=== PATIENT | male | born 1950 | race Caucasian/White ===

== ENCOUNTER 2017-09-25 12:44 | Emergency (ER) | payer MEDICARE, BC ==
[2017-09-25] MEDS ORDERED: Nitroglycerin 0.4 MG Tab.SL ONE (12:58)
[2017-09-25] MEDS ORDERED: Nitroglycerin 0.4 MG Tab.SL SL ONE (14:30)
[2017-09-25] MEDS ORDERED: Metoprolol Tartrate 5 MG/5 ML SDV ONE (16:14)
[2017-09-25] MEDS ORDERED: Heparin Sodium 5,000 Units/ML Vial ONE (16:14)
[2017-09-25] MEDS ORDERED: Heparin Sodium 5,000 Units/ML Vial IVPUSH ONE (16:20)
[2017-09-25] MEDS ORDERED: Metoprolol Tartrate 5 MG/5 ML SDV IV ONE (16:20)
--- NOTE | 2017-09-26 09:21 | CR ---
Chest 1V Frontal HISTORY: pain COMPARISON: 05/19/2008 FINDINGS: No acute infiltrate is identified. Heart size is felt to be within normal limits for the AP technique . There is been interval median sternotomy. No vascular redistribution or pleural fluid can be seen. Bony structures and soft tissues are stable. IMPRESSION: Median sternotomy changes are noted. No acute chest abnormality or other significant interval change is identified.
[2017-09-26 15:04] VITALS: BP 136/79
== END 2017-09-25 17:30 ==
LOC: JP.ED 12:44
DX: I25.119 Atherosclerotic heart disease of native coronary artery with unspecified angina pectoris (principal); E11.9 Type 2 diabetes mellitus without complications; Z79.82 Long term (current) use of aspirin; Z79.84 Long term (current) use of oral hypoglycemic drugs; Z88.1 Allergy status to other antibiotic agents
CPT/HCPCS: 36415; 71010; 80053; 82550; 84484; 85025; 85610; 85730; 96374; 96375; 99285; A9270; 93005; 93010; 99284; J3490

== ENCOUNTER 2018-12-16 22:24 | Emergency (ER) | payer MEDICARE, BC ==
[2018-12-16 23:37] VITALS: BP 125/75
--- NOTE | 2018-12-16 23:45 | EDM.PDOC ---
ED HPI GENERAL MEDICAL PROBLEM - General Chief Complaint: Chest Pain Stated Complaint: HEART ISSUES Time Seen by Provider: 12/16/18 22:40 Source of Information: Reports: Patient, Family History Limitations: Reports: No Limitations - History of Present Illness INITIAL COMMENTS - FREE TEXT/NARRATIVE: 68-year-old male with a known history of coronary disease presents with intermittent chest pressure over the past several weeks. He also has persistent dizziness and malaise. The chest pain is usually at rest, and he does not have diaphoresis, nausea and vomiting, or radiation of pain. At times he does feel short of breath. He does not get significant pain when active, yesterday he walked briskly 500 yards without problem. Location: Reports: Chest Improves with: Reports: Movement Worsens with: Reports: Other (Lying down seems to make pain worse) Associated Symptoms: Reports: Other (Persistent lightheadedness, dizziness and intermittent headaches) Chest Pain Score (Numeric/FACES): 3 - Related Data Allergies Allergy/AdvReac Type Severity Reaction Status Date / Time amoxicillin [Amoxicillin] Allergy Itching Verified 12/16/18 22:29 Home Meds: Home Meds Brimonidine Tartrate [Alphagan P] 1 drop OP BID 07/07/13 [History] metFORMIN [Glucophage XR] 850 mg PO BIDM 07/07/13 [History] Aspirin 1 tab PO DAILY 12/16/18 [History] Dorzolamide/Timolol [Cosopt 2%-0.5% Ophth Soln] 1 drop OP BID 12/16/18 [History] Ezetimibe 1 tab PO DAILY 12/16/18 [History] Glimepiride 4 mg PO DAILY 12/16/18 [History] Pravastatin Sodium 1 tab PO DAILY 12/16/18 [History] Ticagrelor [Brilinta] 1 tab PO DAILY 12/16/18 [History] Past Medical History HEENT History: Reports: Glaucoma Other HEENT History: tubes in eyes for glaucoma Cardiovascular History: Reports: Angina, Heart Murmur, High Cholesterol, Hypertension, NM, Stents, Other (See Below) Other Cardiovascular History: quadruple bypass 11 years ago Musculoskeletal History: Reports: Back Pain, Chronic, Neck Pain, Chronic Endocrine/Metabolic History: Reports: Diabetes, Type II, Obesity/BMI 30+ - Infectious Disease History Infectious Disease History: Reports: Chicken Pox, Measles - Past Surgical History HEENT Surgical History: Reports: Eye Surgery Cardiovascular Surgical History: Reports: Coronary Artery Bypass, Coronary Artery Stent GI Surgical History: Reports: Colonoscopy Musculoskeletal Surgical History: Reports: Other (See Below) Other Musculoskeletal Surgeries/Procedures:: laminectomy L5 Social & Family History - Family History Family Medical History: Noncontributory - Tobacco Use Smoking Status *Q: Light Tobacco Smoker Years of Tobacco use: 50 Packs/Tins Daily: 0.2 - Caffeine Use Caffeine Use: Reports: Coffee - Recreational Drug Use Recreational Drug Use: No ED ROS GENERAL - Review of Systems Review Of Systems: See Below Constitutional: Reports: Malaise. Denies: Fever, Chills HEENT: Reports: Vertigo. Denies: Ear Pain Respiratory: Reports: Shortness of Breath Cardiovascular: Reports: Chest Pain (Pressure). Denies: Palpitations GI/Abdominal: Reports: No Symptoms : Reports: No Symptoms Musculoskeletal: Reports: Neck Pain Skin: Reports: No Symptoms Neurological: Reports: Headache ED EXAM, GENERAL - Physical Exam Exam: See Below Exam Limited By: No Limitations General Appearance: Alert, No Apparent Distress Eye Exam: Bilateral Eye: Normal Inspection Ears: Other (Cerumen impaction of the right ear, normal TM on the left) Throat/Mouth: Normal Inspection Head: Atraumatic Neck: Normal Inspection. No: Carotid Bruit Respiratory/Chest: No Respiratory Distress, Lungs Clear Cardiovascular: Regular Rate, Rhythm, Systolic Murmur (2/6) GI/Abdominal: Soft, Non-Tender Extremities: Pedal Edema (Trace lower extremity edema, symmetric) Neurological: Alert, Oriented, No Motor/Sensory Deficits Psychiatric: Normal Affect, Normal Mood Skin Exam: Warm, Dry EKG INTERPRETATION Rhythm: NSR EKG Interpretation Comments: Nonspecific ST changes, EKG is nearly identical to one done 2 years ago. Course - Vital Signs Last Recorded V/S: Last Vital Signs Temp 96.6 F 12/16/18 22:31 Pulse 71 12/16/18 23:36 Resp 15 12/16/18 23:36 BP 125/75 12/16/18 23:36 Pulse Ox 93 L 12/16/18 23:36 - Orders/Labs/Meds Orders: Active Orders 24 hr Category Date Time Status EKG Documentation Completion [RC] ASDIRECTED Care 12/16/18 22:45 Active EKG 12 Lead [EK] Routine Ther 12/16/18 22:45 Ordered Labs: Laboratory Tests 12/16/18 12/16/18 Range/Units 23:14 23:14 WBC 7.1 (4.5-11.0) K/uL RBC 5.31 (4.30-5.90) M/uL Hgb 15.4 H (12.0-15.0) g/dL Hct 47.4 (40.0-54.0) % MCV 89 (80-98) fL MCH 29 (27-31) pg MCHC 33 (32-36) % Plt Count 187 (150-400) K/uL Neut % (Auto) 60 (36-66) % Lymph % (Auto) 28 (24-44) % [place] % (Auto) 10 H (2-6) % Eos % (Auto) 2 (2-4) % Baso % (Auto) 0 (0-1) % Sodium 138 L (140-148) mmol/L Potassium 4.1 (3.6-5.2) mmol/L Chloride 103 (100-108) mmol/L Carbon Dioxide 25 (21-32) mmol/L Anion Gap 14.1 H (5.0-14.0) mmol/L BUN 20 H D (7-18) mg/dL Creatinine 1.2 (0.8-1.3) mg/dL Est Cr Clr Drug Dosing 66.46 mL/min Estimated GFR (MDRD) > 60 (>60) Glucose 237 H (74-106) mg/dL Calcium 8.8 (8.5-10.1) mg/dL Troponin I 0.017 (0.000-0.056) ng/mL - Re-Assessments/Exams Free Text/Narrative Re-Assessment/Exam: 12/17/18 01:12 EKG was done on arrival which showed no change from previous EKGs. CBC, CMP and troponin were obtained. These were reassuring, with troponin being 0. Patient had no pain while in the emergency room. Hemoglobin is 15.4, white count normal. Electrolytes and kidney function normal. Explained to the patient that this is atypical for cardiac pain. He was discharged with nitroglycerin to use when necessary for pain and if it seems that the nitroglycerin is consistently beneficial he should recheck. He can also return if the pain worsens with shortness of breath, diaphoresis or other concerning symptoms. I recommended he contact the cardiology department tomorrow to schedule an outpatient appointment Departure - Departure Time of Disposition: 23:50 Disposition: Home, Self-Care 01 Condition: Good Clinical Impression: Atypical chest pain Instructions: Nonspecific Chest Pain Referrals: Ellis Lisa MD [Primary Care Provider] - Forms: ED Department Discharge Care Plan Goals: Continue any current medications, and use nitroglycerin as directed for any future chest pain. Consider calling cardiology tomorrow to discuss an appointment in the near future. Return to the emergency room if pain resolves with nitroglycerin on a consistent basis or you feel you're worsening. - My Orders Last 24 Hours: My Active Orders 12/16/18 22:45 EKG Documentation Completion [RC] ASDIRECTED EKG 12 Lead [EK] Routine - Assessment/Plan Last 24 Hours: My Active Orders 12/16/18 22:45 EKG Documentation Completion [RC] ASDIRECTED EKG 12 Lead [EK] Routine
== END 2018-12-16 23:51 | disposition home or self-care (01) ==
LOC: JP.ED 22:24
DX: R07.89 Other chest pain (principal); Z88.1 Allergy status to other antibiotic agents; I10 Essential (primary) hypertension; I25.2 Old myocardial infarction; E11.9 Type 2 diabetes mellitus without complications; E66.9 Obesity, unspecified; F17.210 Nicotine dependence, cigarettes, uncomplicated; Z79.82 Long term (current) use of aspirin; Z79.84 Long term (current) use of oral hypoglycemic drugs; Z79.899 Other long term (current) drug therapy; Z95.1 Presence of aortocoronary bypass graft; Z95.5 Presence of coronary angioplasty implant and graft
CPT/HCPCS: 36415; 80048; 84484; 85025; 93005; 99285-25

== ENCOUNTER 2023-01-22 06:21 | Day surgery (SDC) | payer MEDICARE, BC ==
[2023-01-22] MEDS ORDERED: Lactated Ringers 1,000 ML IV SCH (06:45)
[2023-01-22] MEDS ORDERED: Propofol 200 MG/20 ML SDV ONE (07:17)
[2023-01-22] MEDS ORDERED: Midazolam 1 MG/ML 2 ML SDV ONE (07:17)
[2023-01-22] MEDS ORDERED: fentaNYL 50 MCG/ML SDV ONE (07:17)
[2023-01-22 09:29] VITALS: BP 152/86; PULSE 57
== END 2023-01-22 09:20 | disposition home or self-care (01) ==
LOC: JP.SDS 06:21
PROVIDERS: ATTEND Student in an Organized Health Care Education/Training Program
DX: D12.7 Benign neoplasm of rectosigmoid junction (principal); D12.0 Benign neoplasm of cecum; K57.30 Diverticulosis of large intestine without perforation or abscess without bleeding; G47.33 Obstructive sleep apnea (adult) (pediatric); E78.5 Hyperlipidemia, unspecified; K21.9 Gastro-esophageal reflux disease without esophagitis; I25.10 Atherosclerotic heart disease of native coronary artery without angina pectoris; I25.2 Old myocardial infarction; E11.9 Type 2 diabetes mellitus without complications; E66.9 Obesity, unspecified; Z88.0 Allergy status to penicillin; Z95.5 Presence of coronary angioplasty implant and graft; Z79.899 Other long term (current) drug therapy
CPT/HCPCS: 45380; 45385; 93005; J2250; J2704; J3010; J7120; 88305